=== PATIENT | male | born 1955 | race Caucasian/White ===

== ENCOUNTER 2020-08-10 14:37 | Outpatient (CLI) | payer MEDICARE, SELFPAY ==
--- NOTE | 2020-08-10 14:51 | ECG_ITS ---
Measurements Intervals [place] Rate: 70 P: 47 [place]: 195 QRS: 24 QRSD: 105 T: 35 QT: 397 QTc: 430 Interpretive Statements SINUS RHYTHM VENTRICULAR PREMATURE COMPLEX INCOMPLETE RIGHT BUNDLE BRANCH BLOCK BORDERLINE ECG Electronically Signed On 08-10-2020 15:45:46 CDT by Ej Tao D.O.
== END 2020-08-10 14:38 | disposition home or self-care (01) ==
PROVIDERS: PCP Family Medicine; Visit Provider Family Medicine
DX: E78.2 Mixed hyperlipidemia (principal); I45.10 Unspecified right bundle-branch block
CPT/HCPCS: 93005

== ENCOUNTER 2020-09-25 02:14 | Outpatient (CLI) | payer MEDICARE, SELFPAY ==
[2020-09-25 18:35] LABS: SARS-CoV-2 RNA PCR Negative
== END 2020-09-25 02:15 | disposition home or self-care (01) ==
LOC: ANHCOVIDDT 02:14
PROVIDERS: PCP Family Medicine; Visit Provider Internal Medicine Gastroenterology
DX: Z01.812 Encounter for preprocedural laboratory examination (principal); Z20.828 Contact with and (suspected) exposure to other viral communicable diseases
CPT/HCPCS: 87635; C9803; U0003

== ENCOUNTER 2020-09-28 00:45 | Day surgery (SDC) | payer MEDICARE, SELFPAY ==
[2020-09-22 14:59] VITALS: BMI 27.9
--- NOTE | 2020-09-27 12:20 | WPDANESEPPF ---
Anes - Initial Pre Proc Eval Procedure: Operation Date: 09/28/20 07:30 Proposed Procedures p Screening Colonoscopy - Lawrence Lawrence DO Date/Time: 09/27/20 12:20 Surgeon: Lawrence Lawrence DO Pre Op Diagnosis: Hx Of Colon Polyps Patient Data Age: 65 Gender: M Height: 1.8 m Weight: 91 kg Allergies Allergy/AdvReac Type Severity Reaction Status Date / Time No Known Allergies Allergy Verified 09/28/20 06:17 Home Medications Medication Instructions Recorded Confirmed Type lisinopril 10 mg tablet 10 mg PO DAILY #90 tablet 07/12/20 09/28/20 Rx pioglitazone 45 mg tablet 45 mg PO DAILY #90 tablet 07/12/20 09/28/20 Rx fenofibrate nanocrystallized 145 mg PO DAILY 09/22/20 09/28/20 History metformin 1,000 mg PO BID 09/22/20 09/28/20 History simvastatin 20 mg PO DAILY 09/22/20 09/28/20 History Patient hx anesthesia problems: none Family hx anesthesia problems: none PMFSH Past Medical History Medical History (Updated 09/27/20 @ 12:20 by Bruno Lau DO) Controlled type 2 diabetes mellitus with hyperglycemia, without long-term current use of insulin Hypercalcemia Hypertension Kidney stone Mixed hyperlipidemia Nocturia Other psoriasis Plant allergic contact dermatitis Plantar wart of right foot Family History Family History (Updated 01/18/19 @ 08:31 by DOCTOR UNKNOWN) Father Patient's father is , Onset Age: 94 Mother Family history of chronic obstructive pulmonary disease, Onset Age: 70 Sibling Family history of dementia, Onset Age: 71 Social History Social History Smoking packs per day: 2 Smoking cigarettes per day: 40.0 Years smoked: 30 Smoking pack-years: 60.00 Smoking status: Never smoker Tobacco type: cigarettes Alcohol intake: current Drinks per week: 12 Alcohol use details: BEERS Substance use: never Substance use type: former substance user Living arrangements: with family Spiritual care concerns: No Anes - Eval Final PreProcedure Day of Procedure 09/27/20 12:20 Patient weight: overweight Heart: regular rate and rhythm Lungs: clear to auscultation and normal air movement Airway: Mallampati scale class III Neurological: alert and oriented Last oral intake: >/= 8 hours ASA classification: III Emergent: no Anesthetic plan: proceed Anesthesia type and monitoring: general GIVS and standard monitoring Informed Consent: The patient's anesthetic plan and its attendant risks and benefits were discussed with the patient/family/POA. Questions were solicited and answers provided to the satisfaction of the patient/family/POA.
[2020-09-28 06:17] VITALS: BP 132/71; PULSE 83; RESP 14; TEMP 36.4; O2SAT 96; BMI 29.0
[2020-09-28] MEDS: LACTATED RINGERS 1,000 ML 150 ML IV CONT (06:30)
[2020-09-28 06:35] LABS: Glucose Point of Care 215 (65-105)
--- NOTE | 2020-09-28 07:23 | P.HP_ITS ---
H&P: [facility] History of Present Illness Date/Time: 09/28/20 07:23 Chief Complaint: See below Narrative: Reason for visit this colonoscopy. This very pleasant gentleman seen in consultation the request of primary snow garcia. Impression: Screening and surveillance colonoscopy. The patient's history adenomatous colon polyps. HLD. HTN. DM. Renal stones. Psoriasis Recommendation: Colonoscopy. History: This very pleasant gentleman is here for screening and surveillance colonoscopy. He has a history adenomatous colon polyps. His GI review systems is negative. Physical examination: General: very pleasant patient in no acute distress. HEENT: Head was normocephalic sclerae is clear mouth without masses neck was supple. Heart: Rate rhythm regular without S3 or S4. Lungs: CTA. Abdomen: Soft with no guarding or rigidity. Bowel sounds were active. Neurologic: Cranial nerves 2 through 12 intact. No focal defects. No clonus. Musculoskeletal system: Revealed no joint tenderness or swelling no muscle atrophy. Extremities: Reveal no significant edema. Skin: Warm and dry with normal turgor. Mental status: intact. Patient is alert and oriented. Review of Systems Review of Systems: All systems reviewed & are unremarkable except as noted in HPI and below PMFSH Past Medical History Medical History (Updated 09/27/20 @ 12:20 by Bruno Lau, ) Controlled type 2 diabetes mellitus with hyperglycemia, without long-term current use of insulin Hypercalcemia Hypertension Kidney stone Mixed hyperlipidemia Nocturia Other psoriasis Plant allergic contact dermatitis Plantar wart of right foot Family History Family History (Updated 01/18/19 @ 08:31 by DOCTOR UNKNOWN) Father Patient's father is , Onset Age: 94 Mother Family history of chronic obstructive pulmonary disease, Onset Age: 70 Sibling Family history of dementia, Onset Age: 71 Social History Social History Smoking packs per day: 2 Smoking cigarettes per day: 40.0 Years smoked: 30 Smoking pack-years: 60.00 Smoking status: Never smoker Tobacco type: cigarettes Alcohol intake: current Drinks per week: 12 Alcohol use details: BEERS Substance use: never Substance use type: former substance user Living arrangements: with family Spiritual care concerns: No Meds Home Medications and Allergies Home Medications Medication Instructions Recorded Confirmed Type lisinopril 10 mg tablet 10 mg PO DAILY #90 tablet 07/12/20 09/28/20 Rx pioglitazone 45 mg tablet 45 mg PO DAILY #90 tablet 07/12/20 09/28/20 Rx fenofibrate nanocrystallized 145 mg PO DAILY 09/22/20 09/28/20 History metformin 1,000 mg PO BID 09/22/20 09/28/20 History simvastatin 20 mg PO DAILY 09/22/20 09/28/20 History Allergies Allergy/AdvReac Type Severity Reaction Status Date / Time No Known Allergies Allergy Verified 09/28/20 06:17 Vital Signs Vital Signs - 24 hr 09/28/20 06:17 Temperature 36.4 C L Pulse Rate 83 Respiratory Rate 14 Blood Pressure 132/71 Pulse Oximetry 96
[2020-09-28 07:49] VITALS: BP 103/63; PULSE 75; RESP 27; O2SAT 97
[2020-09-28 07:59] VITALS: BP 114/71; PULSE 78; RESP 28; O2SAT 94
[2020-09-28 08:09] VITALS: BP 117/78; PULSE 74; RESP 22; O2SAT 95
== END 2020-09-28 08:13 | disposition home or self-care (01) ==
PROVIDERS: PCP Family Medicine; Visit Provider Internal Medicine Gastroenterology
PROC: 0DJD8ZZ Inspection of Lower Intestinal Tract, Via Natural or Artificial Opening Endoscopic (ICD-10-PCS; CPT 45378; principal; 2020-09-28 07:30)
DX: Z12.11 Encounter for screening for malignant neoplasm of colon (principal); K63.5 Polyp of colon; K57.90 Diverticulosis of intestine, part unspecified, without perforation or abscess without bleeding; K64.8 Other hemorrhoids; E11.65 Type 2 diabetes mellitus with hyperglycemia; E83.52 Hypercalcemia; Z87.442 Personal history of urinary calculi; E78.2 Mixed hyperlipidemia; R35.1 Nocturia; L40.9 Psoriasis, unspecified; Z86.010 Personal history of colon polyps; Z79.84 Long term (current) use of oral hypoglycemic drugs; I10 Essential (primary) hypertension
CPT/HCPCS: 45385; 87635; 88305; C9803; J2704; J7120; U0003

== ENCOUNTER 2023-06-28 11:49 | Emergency (ER) | payer MEDICARE, SELFPAY ==
[2023-06-28 12:04] VITALS: BP 131/69; PULSE 82; RESP 16; TEMP 36.8; O2SAT 100
--- NOTE | 2023-06-28 12:16 | ED.SKABFB ---
HPI - Skin/Abscess/Foreign Bdy General Chief complaint: Skin/Abscess/Foreign Body Stated complaint: Infection on skin on back Time Seen by Provider: 06/28/23 12:15 Source: patient Mode of arrival: ambulatory Limitations: no limitations History of Present Illness HPI narrative: Patient is a pleasant 67-year-old male who presents emergency department today ambulatory with a steady gait for an area of redness and swelling to the left side of his mid back. Patient states he has had a similar abscess like this in the past. He states it has been there for about 4-5 days. He denies any fever, chills, numbness or tingling of lower extremities, significant pain to his back. denies any insect bite. states he had to have an area drained like this before. Related Data Allergies Allergy/AdvReac Type Severity Reaction Status Date / Time No Known Allergies Allergy Verified 06/28/23 11:50 Review of Systems Review of Systems: CONSTITUTIONAL: Denies fever, chills, or sweats. CARDIOVASCULAR: Denies chest pain, palpitations, or edema. RESPIRATORY: Denies cough or dyspnea. GASTROINTESTINAL: Denies abdominal pain, nausea, vomiting, or diarrhea. GENITOURINARY: Denies dysuria or hematuria. SKIN: Denies rash or itching. abscess to left side of back. MUSCULOSKELETAL: Denies back pain, joint pain, or myalgia. NEUROLOGIC: Denies headache, numbness, or weakness. PSYCHIATRIC: Denies anxiety or depression. All systems reviewed & are unremarkable except as noted in HPI and below PMFSH Past Medical History Medical History BMI 30.0-30.9,adult BMI 31.0-31.9,adult BMI 33.0-33.9,adult Body mass index (bmi) 32.0-32.9, adult (02/03/19) Chronic sinusitis Controlled type 2 diabetes mellitus with hyperglycemia, without long-term current use of insulin fasting glucose 143 and hemoglobin A1c 6.7 on 08/22/2021. glucose 176 and hemoglobin A1c 7.2 on 01/30/2022.Fasting glucose 126 with hemoglobin A1c 6.4 With microalbumin ratio of 11 on 09/06/2022. Fasting glucose 108 with hemoglobin A1c 6.5 on 02/22/2023. Encounter for prostate cancer screening Essential hypertension Facial pain Facial pressure Hypercalcemia calcium level normal at 10.0 with PTH 6 on 08/22/2021 Hypertension Hypertrophy of both inferior nasal turbinates Impacted cerumen, right ear Infected sebaceous cyst of skin Ingrown toenail of both feet Kidney stone Mixed hyperlipidemia total cholesterol 143, triglycerides 271, HDL 37 and LDL 73 on 08/22/2021. Cholesterol 156, triglycerides 399, HDL 32, LDL 76 on 01/30/2022. cholesterol 156, triglycerides 235, HDL 37, LDL 86 on 09/06/2022. Total cholesterol 141, triglycerides 169, HDL 38 and LDL 76 on 02/22/2023. Nasal congestion Nasal folliculitis Nasal septal deviation Nocturia PSA normal at 0.13 on 08/22/2021. PSA 0.12 on 09/06/2022. Obesity (BMI 30.0-34.9) Other psoriasis Plant allergic contact dermatitis Plantar wart of right foot Screening for diabetic retinopathy dilated eye exam 05/15/[address] Horne with no diabetic retinopathy or macular degeneration. No diabetic retinopathy on 05/02/2022. No retinopathy on 06/12/2023. Family History Family History Father Patient's father is , Onset Age: 94 Hypertension Mother Family history of chronic obstructive pulmonary disease, Onset Age: 70 Sibling Family history of dementia, Onset Age: 71 Sibling Cancer Social History Social History Smoking packs per day: 2 Smoking cigarettes per day: 40.0 Years smoked: 30 Smoking pack-years: 60.00 Smoking status: Former smoker Tobacco type: cigarettes Alcohol intake: current Alcohol use details: Rarely Substance use: never Substance use type: does not use Lack of Transportation: No Lack of Food: Never True Cur
[2023-06-28] MEDS: MUPIROCIN 2% OINT 22 GM TUBE 1 APPLIC TOPICAL (13:55)
[2023-06-28 14:00] VITALS: BP 138/90; PULSE 86; RESP 19; O2SAT 98
== END 2023-06-28 14:01 | disposition home or self-care (01) ==
PROVIDERS: Emergency Provider Nurse Practitioner; PCP Family Medicine
DX: L02.212 Cutaneous abscess of back [any part, except buttock and flank] (principal); Z87.891 Personal history of nicotine dependence; E11.9 Type 2 diabetes mellitus without complications; I10 Essential (primary) hypertension; Z87.442 Personal history of urinary calculi
CPT/HCPCS: 10061; 87070; 87147; 87181; 87186; 87205; 99283; A9270

== ENCOUNTER → 2023-10-16 16:38 | Outpatient (CLI) | payer MEDICARE, OTHER, SELFPAY ==
--- NOTE | ~2023-10-16 | XR_ITS ---
XR knee LT min 4V DATE: 10/16/2023 17:08 INDICATION: Left knee pain TECHNIQUE: [place], standing AP and PA and lateral views COMPARISON: None FINDINGS: Mild suprapatellar knee joint effusion. Superior pole patellar enthesopathy at quadriceps tendon insertion. There is mild periarticular spurring consistent with osteoarthritis. There is severe narrowing/virtual obliteration of the department joint space with [id number]. Later al compartment joint space is well preserved. No fracture, dislocation, periosteal reaction or bone destruction, radiopaque intra-articular loose b serenity or chondral calcinosis is noted. Femoral and popliteal artery calcifications. IMPRESSION: Small suprapatellar knee joint effusion is suggested Tricompartment osteoarthritis, particularly severe at the medial compartment with [id number] Reviewed, dictated and finalized at location L. 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
--- NOTE | ~2023-10-16 | XR_ITS ---
XR knee RT min 4V DATE: 10/16/2023 17:08 INDICATION: Right knee pain TECHNIQUE: [place] and standing AP and lateral views, lateral view. COMPARISON: None FINDINGS: Suggestion of mild suprapatellar knee joint effusion. There is severe narrowing/virtual obliteration of the medial compartment joint space with bone-on-bon e. The lateral and patellofemoral compartment joint spaces are well preserved. No fracture or dislocation, periosteal reaction or bone destruction, chondrocalcinosis or radiopaque intra-articular loose body is noted. Femoral and popliteal artery calcification. IMPRESSION: Tricompartment osteophytosis, productive is severe at the medial compartment, with bone-o n-bone Reviewed, dictated and finalized at location L. [employer] IMPRESSION: Tricompartment osteophytosis, productive is severe at the medial co mpartment, with [id number]
== END ==
PROVIDERS: PCP Family Medicine; Visit Provider Family Medicine
DX: M17.12 Unilateral primary osteoarthritis, left knee (principal); M25.462 Effusion, left knee; M25.761 Osteophyte, right knee
CPT/HCPCS: 73564

== ENCOUNTER 2024-03-15 05:59 | Inpatient (IN) | payer OTHER, MEDICARE, SELFPAY ==
[2024-03-15] VITALS (22 sets, daily range): BP systolic 127–179; BP diastolic 62–92; PULSE 72–94; RESP 17–30; TEMP 36.4–36.8; O2SAT 88–99; BMI 30.6
--- NOTE | ~2024-03-15 | CT_ITS ---
EXAMINATION:CT diagnostic chest wo con DATE: 03/15/2024 14:18 INDICATION: Shortness of breath. Abnormal chest radiograph. TECHNIQUE: Computed tomography (CT) of the chest was performed without intravenous contrast. Automate d exposure control and iterative reconstruction technique were employed. The dose-length product (DLP ) was 355.18 mGy-cm. COMPARISON: Chest single view 03/15/2024 FINDINGS: There is mild emphysema. There is widespread septal thickening in the lungs with groundglas s opacities and architectural distortion. No bronchiectasis. No pleural effusion. The heart size is n ormal. There are coronary artery calcifications. No pericardial effusion. There is mild mediastinal l ymphadenopathy. There are peripelvic cysts in the kidneys measuring up to 2.5 cm in the left. There a re 2 stones in right kidney measuring up to 3 mm. There is a 4 mm stone in left kidney. There are nayla dging endplate osteophytes at multiple levels in the spine, consistent with diffuse idiopathic skelet al hyperostosis (DISH). . IMPRESSION: 1. Diffuse lung disease, likely a combination of mild emphysema, chronic interstitial lung disease, a nd atypical pneumonia versus pulmonary edema. 2. Mild mediastinal lymphadenopathy, likely reactive. Reviewed, dictated and finalized at location A. IMPRESSION: 1. Diffuse lung disease, likely a combination of mild emphysema, chronic inters titial lung disease, and atypical pneumonia versus pulmonary edema. 2. Mild mediastinal lymphadenopathy, likely reactive.
--- NOTE | ~2024-03-15 | XR_ITS ---
Portable chest x-ray Comparison: None Clinical History: Shortness of breath Findings: There is mild haziness with basilar and peripheral distribution. No pleural effusion. Car diomediastinal silhouette is stable. Bones and soft tissues are unremarkable. Impression: Hazy pulmonary disease as above. Correlate for pulmonary edema, infection, or possibly chronic inters titial disease. Reviewed, dictated and finalized at location . Impression: Hazy pulmonary disease as above. Correlate for pulmonary edema, infection, or p ossibly chronic interstitial disease.
--- NOTE | 2024-03-15 06:01 | ECG_ITS ---
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 Measurements Intervals [place] Rate: 89 P: 9 ID: [id number] QRS: -20 QRSD: 85 T: 8 QT: 336 QTc: 411 Interpretive Statements SINUS RHYTHM NORMAL ELECTROCARDIOGRAM No previous ECG available for comparison Electronically Signed On 03-15-2024 07:36:38 CDT by Jam Sam M.D.
[2024-03-15 06:15] LABS: Basophils Percent Auto 0.4 % (0.2-1.2); Eosinophils Absolute Auto 0.6 K/mm3 (0-0.3); Eosinophils Percent Auto 5.3 % (0-4.4); Hematocrit 43.5 % (42.0-52.0); Hemoglobin 14.3 g/dL (14.0-18.0); Immature Granulocyte Absolute 0.08 K/mm3 (0.00-0.031); Immature Granulocyte Percent A 0.7 % (0-0.5); Lymphocytes Absolute Auto 1.64 K/mm3 (0.9-3.2); Lymphocytes Percent Auto 15.2 % (18.3-44.2); Mean Corpuscular HGB Conc 32.9 g/dl (32-36); Mean Corpuscular Hemoglobin 29.5 pg (26-34); Mean Corpuscular Volume 89.9 fl (80-100); Mean Platelet Volume 9.4 fl (7.4-10.4); Monocytes Percent Auto 9.1 % (2.6-8.5); Neutrophils Absolute Auto 7.5 K/mm3 (1.3-6.7); Neutrophils Percent Auto 69.3 % (45.5-73.1); Platelet Count Result 472 k/mm3 (150-375); Red Blood Count 4.84 M/mm3 (4.6-6.20); Red Cell Distribution Width 13.4 % (11.5-14.5); White Blood Count 10.8 K/mm3 (4.5-10.0)
[2024-03-15 06:27] LABS: Alanine Aminotransferase 15 U/L (6-50); Albumin Level 4.4 g/dL (3.5-5.1); Alkaline Phosphatase 69 U/L (38-126); Anion Gap 10 mmol/L (4-12); Aspartate Amino Transferase 20 U/L (17-59); Bilirubin,Total 0.6 mg/dL (0.2-1.3); Blood Urea Nitrogen 22 mg/dL (9-20); Calcium 9.9 mg/dL (8.4-10.2); Carbon Dioxide 22 mmol/L (22-30); Chloride 108 mmol/L (98-107); Estimated CRCL calculation 91 ml/min; Estimated Glomerular Filt Rate > 60; Glucose 159 mg/dL (65-110); Potassium 4.1 mmol/L (3.4-5.0); Sodium 140 mmol/L (137-145)
--- NOTE | 2024-03-15 07:20 | PC.NURSE ---
Assumed care of pt. Pt resting with tachy resp, oxygen intact at 2L. Denies any CP, reports occasional cough. Breath sounds diminished in bases.
[2024-03-15] MEDS: IPRATROPIUM 0.5 MG/ALBUTEROL SULFATE 2.5 MG AMPUL.NEB 3 ML INHALATION ×3 (07:38→20:39)
--- NOTE | 2024-03-15 07:43 | ED.SOB ---
HPI - SOB/Dyspnea General Chief Complaint: Shortness of Breath/Dyspnea Stated Complaint: SOB Time Seen by Provider: 03/15/24 06:53 History of Present Illness HPI Narrative: Patient is a 68-year-old male who denies history of cardiac disease or lung disease who presents the ER with shortness of breath. Worsening over the weekend. Associated with mild sinus congestion. No fevers or chills or sweats. No productive cough. Has exertional dyspnea. Does not typically wear oxygen. Patient with a low O2 saturation upon arrival. He has no chest pain. No alleviating factors are identified. No known sick contacts. Patient is a former smoker. Related Data Allergies Allergy/AdvReac Type Severity Reaction Status Date / Time No Known Allergies Allergy Verified 12/09/23 13:08 Review of Systems Review of Systems: All systems reviewed & are unremarkable except as noted in HPI and below Constitutional: Constitutional: Reports no additional constitutional complaints ENT: Reports nasal congestion and Denies sore throat Cardiovascular: Cardiovascular: Reports no additional cardiovascular complaints Respiratory: Respiratory: Denies chest congestion, Reports cough, Reports dyspnea and Denies wheezing Gastrointestinal: Gastrointestinal: Reports no additional gastrointestinal complaints Musculoskeletal: Musculoskeletal: Reports no additional musculoskeletal complaints [facility] Past Medical History Medical History (Updated 03/15/24 @ 18:53 by Ambrosio Salter MD) Chronic pain of left knee Tricompartmental osteoarthritis of the knee on 10/16/2023 most severe in the medial component. Chronic pain of right knee X-ray of the knee on 10/16/2023 reveals tricompartmental osteoarthritis severe in the medial component. Chronic sinusitis Controlled type 2 diabetes mellitus with hyperglycemia, without long-term current use of insulin fasting glucose 143 and hemoglobin A1c 6.7 on 08/22/2021. glucose 176 and hemoglobin A1c 7.2 on 01/30/2022.Fasting glucose 126 with hemoglobin A1c 6.4 With microalbumin ratio of 11 on 09/06/2022. Fasting glucose 108 with hemoglobin A1c 6.5 on 02/22/2023. Glucose 126 with hemoglobin A1c 6.0 and urine microalbumin ratio of 16 on 09/06/2023. Encounter for prostate cancer screening PSA 0.14 on 09/06/2023. Essential hypertension Kidney stone Mixed hyperlipidemia total cholesterol 143, triglycerides 271, HDL 37 and LDL 73 on 08/22/2021. Cholesterol 156, triglycerides 399, HDL 32, LDL 76 on 01/30/2022. cholesterol 156, triglycerides 235, HDL 37, LDL 86 on 09/06/2022. Total cholesterol 141, triglycerides 169, HDL 38 and LDL 76 on 02/22/2023. Total cholesterol 137, triglycerides 159, HDL 44, LDL 69 with ratio 3.1 on 09/06/2023. Nocturia PSA normal at 0.13 on 08/22/2021. PSA 0.12 on 09/06/2022. Other psoriasis Midline lower back /buttock Screening for diabetic retinopathy dilated eye exam 05/15/[address] Horne with no diabetic retinopathy or macular degeneration. No diabetic retinopathy on 05/02/2022. No retinopathy on 06/12/2023. Surgical History Surgical History (Updated 03/15/24 @ 13:34 by Claudia Ortez PA-C) History of colonoscopy with polypectomy Family History Family History Father Patient's father is , Onset Age: 94 Hypertension Mother Family history of chronic obstructive pulmonary disease, Onset Age: 70 Sibling Family history of dementia, Onset Age: 71 Sibling Cancer Social History Social History (Updated 03/15/24 @ 13:35 by Claudia Ortez PA-C) Social History: Surrogate medical decision maker: Terrie Callaway, spouse. Code status: Full code. Smoking packs per day: 2 Smoking cigarettes per day: 40.0 Years smoked: 30 Smoking pack-years: 60.00 Smoking status: Former smoker Alcohol intake: never Alcohol use details: Rare alcohol use in moderation. Substance u
--- NOTE | 2024-03-15 08:00 | PC.NURSE ---
Pt trialed on room air. After Resp Treatment pt 89% with shortness of breath. Dr. Salter aware & oxygen restarted at 2l raising Sa02 to 94%
--- NOTE | 2024-03-15 08:15 | PC.NURSE ---
Chemistry notified of BNP order.
[2024-03-15 08:27] LABS: NT Pro B Type Natriuretic Pept 149 pg/mL (19.9-100)
[2024-03-15] MEDS: AZITHROMYCIN 500 MG/NS 250 ML 500 MG/250 ML BAG 250 MG IVPB (09:35)
[2024-03-15 09:49] LABS: Influenza A QL RT-PCR Negative (Negative); Influenza B QL RT-PCR Negative (Negative); RSV RNA, RT-PCR Negative (Negative); SARS-CoV-2 RNA PCR Negative (Negative)
--- NOTE | 2024-03-15 12:35 | ADMGEN ---
This patient, Rick Callaway, was admitted to Medical Room 256-. Patient/family oriented to hospital policies and general routines including ID bracelet, bed and alarms, visiting hours, pain management, procedures, bathroom and other care routines, personal items, smoking policy, room service/diet, and visiting hours. Information on how to activate the Rapid Response Team has been discussed. Patient/Family are encouraged to report perceived risks to care and to ask questions if they do not understand what they are told or what they should do.
--- NOTE | 2024-03-15 13:28 | PM.IMHP ---
H&P: HPI History of Present Illness Date/Time: 03/15/24 14:00 Chief Complaint: Shortness of breath. Narrative: This is a pleasant 68-year-old male with hypertension, hyperlipidemia, type 2 diabetes mellitus, and suspected COPD who presented to the emergency department for evaluation of shortness of breath. The patient provides the following history. He has not felt well for about a week with sinus congestion, dry cough, decreased appetite, itchy and watery eyes, and increasing dyspnea on lesser and lesser exertion. He feels as though he cannot take in a deep breath. Home COVID test was negative. He denies fever, chills, sweats, chest pain, pleuritic pain, palpitations, orthopnea, paroxysmal nocturnal dyspnea, edema, nausea, vomiting, and diarrhea. He also denies dysphagia and concerns for aspiration. In the ED: SpO2 was as low as 88% with exertion in the ED. The remainder of his vital signs are normal. Labs were significant for a WBC count of 10.8, BUN 22, glucose 159, proBNP 149. He tested negative for influenza, RSV, and COVID. Chest x-ray showed mild haziness with basilar and peripheral distribution with a differential diagnosis to include pulmonary edema, infection, or possibly chronic interstitial disease. EKG showed normal sinus rhythm. He was given a nebulizer treatment and a dose of azithromycin and ceftriaxone he is being admitted in this setting for further treatment and evaluation. Review of Systems Review of Systems: 12 systems were reviewed and are negative except for as per HPI. [facility] Past Medical History Medical History Chronic pain of left knee Tricompartmental osteoarthritis of the knee on 10/16/2023 most severe in the medial component. Chronic pain of right knee X-ray of the knee on 10/16/2023 reveals tricompartmental osteoarthritis severe in the medial component. Chronic sinusitis Controlled type 2 diabetes mellitus with hyperglycemia, without long-term current use of insulin fasting glucose 143 and hemoglobin A1c 6.7 on 08/22/2021. glucose 176 and hemoglobin A1c 7.2 on 01/30/2022.Fasting glucose 126 with hemoglobin A1c 6.4 With microalbumin ratio of 11 on 09/06/2022. Fasting glucose 108 with hemoglobin A1c 6.5 on 02/22/2023. Glucose 126 with hemoglobin A1c 6.0 and urine microalbumin ratio of 16 on 09/06/2023. Encounter for prostate cancer screening PSA 0.14 on 09/06/2023. Essential hypertension Kidney stone Mixed hyperlipidemia total cholesterol 143, triglycerides 271, HDL 37 and LDL 73 on 08/22/2021. Cholesterol 156, triglycerides 399, HDL 32, LDL 76 on 01/30/2022. cholesterol 156, triglycerides 235, HDL 37, LDL 86 on 09/06/2022. Total cholesterol 141, triglycerides 169, HDL 38 and LDL 76 on 02/22/2023. Total cholesterol 137, triglycerides 159, HDL 44, LDL 69 with ratio 3.1 on 09/06/2023. Nocturia PSA normal at 0.13 on 08/22/2021. PSA 0.12 on 09/06/2022. Other psoriasis Midline lower back /buttock Screening for diabetic retinopathy dilated eye exam 05/15/[address] Horne with no diabetic retinopathy or macular degeneration. No diabetic retinopathy on 05/02/2022. No retinopathy on 06/12/2023. Surgical History Surgical History History of colonoscopy with polypectomy Family History Family History Father Patient's father is , Onset Age: 94 Hypertension Mother Family history of chronic obstructive pulmonary disease, Onset Age: 70 Sibling Family history of dementia, Onset Age: 71 Sibling Cancer Social History Social History Social History: Surrogate medical decision maker: Terrie Callaway, spouse. Code status: Full code. Smoking packs per day: 2 Smoking cigarettes per day: 40.0 Years smoked: 30 Smoking pack-year
[2024-03-15] MEDS: guaiFENesin 12 HR 600 MG TABCR 1200 MG PO ×2 (14:58→20:33)
[2024-03-15 16:56] LABS: Glucose Point of Care 110 mg/dl (65-105)
[2024-03-15] MEDS: metFORMIN HCL XR 500 MG TAB.SR.24H 1000 MG PO (17:41)
[2024-03-15 20:27] LABS: Glucose Point of Care 107 mg/dl (65-105)
[2024-03-15] MEDS: IPRATROPIUM 0.5 MG/ALBUTEROL SULFATE 2.5 MG AMPUL.NEB 3 ML (20:59)
[2024-03-16] VITALS (15 sets, daily range): BP systolic 122–138; BP diastolic 57–61; PULSE 77–90; RESP 18–20; TEMP 36.5–36.8; O2SAT 88–93
[2024-03-16] MEDS: IPRATROPIUM 0.5 MG/ALBUTEROL SULFATE 2.5 MG AMPUL.NEB 3 ML INHALATION ×4 (03:15→20:50)
[2024-03-16 05:49] LABS: Hematocrit 42.4 % (42.0-52.0); Hemoglobin 13.4 g/dL (14.0-18.0); Mean Corpuscular HGB Conc 31.6 g/dl (32-36); Mean Corpuscular Hemoglobin 29.5 pg (26-34); Mean Corpuscular Volume 93.2 fl (80-100); Mean Platelet Volume 9.8 fl (7.4-10.4); Platelet Count Result 412 k/mm3 (150-375); Red Blood Count 4.55 M/mm3 (4.6-6.20); Red Cell Distribution Width 13.3 % (11.5-14.5); White Blood Count 8.3 K/mm3 (4.5-10.0)
[2024-03-16 06:01] LABS: Anion Gap 9 mmol/L (4-12); Blood Urea Nitrogen 21 mg/dL (9-20); CRP 3.2 mg/dL (<1.0); Calcium 9.2 mg/dL (8.4-10.2); Carbon Dioxide 21 mmol/L (22-30); Chloride 106 mmol/L (98-107); Estimated CRCL calculation 102 ml/min; Estimated Glomerular Filt Rate > 60; Glucose 134 mg/dL (65-110); Magnesium 1.9 mg/dL (1.6-2.3); Potassium 3.7 mmol/L (3.4-5.0); Sodium 136 mmol/L (137-145)
[2024-03-16 06:26] LABS: Procalcitonin 0.1 ng/mL
--- NOTE | 2024-03-16 07:53 | PM.IMPN ---
Progress Note: A&P Assessment and Plan (1) Acute respiratory failure with hypoxia: Code(s): J96.01 - Acute respiratory failure with hypoxia Status: Acute Assessment and Plan: Patient presented to ED with shortness of breath and SpO2 88% requiring oxygen supplementation of 3L NC on admission. Back to baseline room air. - Monitor Oxygen saturation, Oxygen via NC; wean oxygen as tolerated, keep SpO2 greater than 88% (2) Abnormal chest x-ray: Code(s): R93.89 - Abnormal findings on diagnostic imaging of other specified body structures Status: Acute Assessment and Plan: Patient presents to hospital with SOB for the past week. He has a 60 pack year smoking history, quit in 1999. Suspect COPD. - CXR: Hazy pulmonary disease as above. Correlate for pulmonary edema, infection, or possibly chronic interstitial disease. - Chest CT: Diffuse lung disease, likely a combination of mild emphysema, chronic interstitial lung disease, and atypical pneumonia versus pulmonary edema. Mild mediastinal lymphadenopathy, likely reactive. - Antibiotics: Ceftriaxone 1 gram IV q24H and Azithromycin 500mg IV q24H - Viral PCR: negative for Flu/COVID/RSV - Back on baseline RA. Monitor Oxygen saturation, Oxygen via NC; wean oxygen as tolerated, keep SpO2 greater than 88% - supportive treatment tyl prn mucinex BID nebs q6H - Monitor vital signs, I&Os, neuro status and patient is a fall risk - Follow WBC, serum electrolytes, temperature curves and cultures - Sputum culture collected on 03/16: pending - Legionella, pneumococcal, mycoplasma pending - MRSA pending - Autoimmune serologies - Pulmonology following, agree with continued CAP treatment (3) Type 2 diabetes mellitus: Code(s): E11.9 - Type 2 diabetes mellitus without complications Status: Acute Assessment and Plan: - hypoglycemia protocol - POC blood glucose ACHS - home medication - glimepiride, pioglitazone, metformin - correct regimen ordered - low dose TIDWM and continued home medications - A1C 09/06/23: 6.0 (4) Essential hypertension: Code(s): I10 - Essential (primary) hypertension Status: Acute Assessment and Plan: Chronic, stable on home medications. - Lisinopril 10 mg daily - Monitor (5) Mixed hyperlipidemia: Code(s): E78.2 - Mixed hyperlipidemia Status: Acute Assessment and Plan: Chronic, continue simvastatin 20 mg daily. Time Spent With Patient Time with patient: 25 - 35 minutes Subjective Date/time seen: 03/16/24 07:53 Interval history: 68-year-old male smoker (46 pack year) with hypertension, hyperlipidemia, type 2 diabetes mellitus, and suspected COPD who presented to the emergency department for evaluation of shortness of breath. Patient is pleasant lying in bed. He states he is feeling much better since receiving the breathing treatments. He continues to have a productive cough with yellow/brown phlegm. He denies chest pain, palpitations, nausea/vomiting, and changes in bowel/bladder. Patient evaluated by Dr. Dimas. Plan to continue CAP treatment, duonebs, Mucinex and check overnight pulse oximetry. He had an ABG performed however this specimen was mixed with venous blood. Review of Systems Review of Systems: All systems reviewed & are unremarkable except as noted in HPI and below Exam Narrative: AF HR 88 RR 20 SpO2 93 RA BP 136/57 General: male in no acute respiratory distress who is nontoxic appearing, lying semi recumbent in bed. HEENT: Normocephalic. Atraumatic. Pupils equal round reactive to light. Extraocular movement intact. Sclera clear and anicteric. No facial asymmetry. Chest: Lungs are clear to auscultation bilaterally. No wheezes or crackles. CV: Heart was regular rate and rhythm. S1/S2. No murmurs, gallops, or rubs. Abd: Abdomen was soft. Nontender. Nondistended. Positive bowel sounds. No organomegaly or masses. Ext: No clubbing, cyanosis, or edema. 2+ DP
[2024-03-16 08:12] LABS: Glucose Point of Care 147 mg/dl (65-105)
[2024-03-16] MEDS: FENOFIBRATE NANOCRYSTALLIZED 145 MG TABLET PO (09:33)
[2024-03-16] MEDS: GLIMEPIRIDE 2 MG TABLET 4 MG PO (09:33)
[2024-03-16] MEDS: lisinopriL 10 MG TABLET PO (09:34)
[2024-03-16] MEDS: PIOGLITAZONE HCL 45 MG TABLET PO (09:34)
[2024-03-16] MEDS: metFORMIN HCL XR 500 MG TAB.SR.24H 1000 MG PO ×2 (09:34→18:02)
[2024-03-16] MEDS: SIMVASTATIN 20 MG TABLET PO (09:34)
[2024-03-16] MEDS: guaiFENesin 12 HR 600 MG TABCR 1200 MG PO ×2 (09:34→21:04)
[2024-03-16] MEDS: AZITHROMYCIN 500 MG/NS 250 ML 500 MG/250 ML BAG 250 MG IVPB (11:22)
[2024-03-16 11:35] LABS: Creatine Kinase 47 U/L (55-170)
[2024-03-16 11:41] LABS: Glucose Point of Care 231 mg/dl (65-105)
[2024-03-16] MEDS: INSULIN ASPART (*BKC) 100 UNITS/ML SUB-Q (12:15)
--- NOTE | 2024-03-16 12:38 | PM.CNPUL ---
Assessment and Plan Assessment and plan (1) COPD (chronic obstructive pulmonary disease): Code(s): J44.9 - Chronic obstructive pulmonary disease, unspecified Status: Acute Assessment and Plan: Patient with a 46 pack year tobacco use, mild apical predominant centrilobular emphysema on his chest CT scan. I have no PFTs. The patient may have COPD. 03/16/2024: Today the patient states that he feels better. Overall he states that his breathing is 80% back to his normal, his phlegm is 80% improved and he still has yellow phlegm. His cough is 80% improved. He says the DuoNebs to help him take deeper breaths. When I enter the room the patient was on 3 L nasal cannula saturations 97%. I decreased the patient to room air and after 23 minutes his saturations were 91%. Plan: Currently the patient has no wheezing. At this time I will continue DuoNebs q.6 hours. He does have some phlegm production and I will continue guaifenesin 1200 mg p.o. b.i.d.. I will check an alpha 1 anti trypsin genotype. Goal saturation 90-94%. Currently patient is on room air. I will check a room air arterial blood gas to exclude chronic hypercarbic respiratory Failure. I will check an overnight oximetry on room air to assess his oxygen levels when he sleeps. Of note the says that he has witnessed sleep apnea episodes. Will follow with you. (2) Abnormal CT scan of lung: Code(s): R91.8 - Other nonspecific abnormal finding of lung field Status: Acute Assessment and Plan: Patient has no history of respiratory symptoms prior to 10 days ago. I have no old imaging. Patient has 46 pack year tobacco use quit 23 years ago. 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 The patient also states that in the he was exposed to asbestos. CT scan of the chest shows mild apical predominant centrilobular emphysema. Homogeneous septal thickening throughout with no peripheral or basilar predominance and with no honeycombing or bronchiectasis. There is ground glass infiltrates with some mosaic attenuation. In my opinion this is a CT pattern indeterminate for UIP. Etiology includes pneumonia (bacterial or viral), occupational lung disease from inhaled construction and brick dust, NSIP from autoimmune disease, hypersensitivity pneumonitis, doubt fluid overload, Plan: continue treat with ceftriaxone and azithromycin, day 2. I will send an extended respiratory pathogen panel. I will send serologies for autoimmune disease as well as a hypersensitivity pneumonitis panel. Echocardiogram has been ordered. (3) Pneumonia: Code(s): J18.9 - Pneumonia, unspecified organism Status: Acute Assessment and Plan: Patient with a 10 day history of an acute illness including worsening cough, dyspnea on exertion, increased phlegm production. COVID, RSV and influenza RT PCR studies negative. Sputum cultures pending Plan: Agree with continuation a treatment for community-acquired pneumonia with ceftriaxone and azithromycin. Patient is on day 2 and says he is clinically improved.. I will so he send urine Legionella, urine pneumococcal and mycoplasma IgM. sputum MRSA assay. History of Present Illness History of Present Illness Consult date: 03/16/24 Chief complaint: Pneumonia/Hypoxia Narrative: 03/16/2024: This is a new pulmonary consult for COPD, pneumonia and interstitial lung disease. 68-year-old with a history of hypertension, diabetes and sore joints presented to the hospital on 03/15/2024 with worsening shortness of breath. Patient has no history of childhood infections, childhood asthma, adult pneumonias requiring hospitalization or lung disease to his knowledge. Two weeks ago the patient had no respiratory limitations in activities of his daily living. 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
[2024-03-16 13:54] LABS: Rheumatoid Factor < 12.0 IU/ML (<12)
[2024-03-16 14:13] LABS: Alveolar/Arterial O2 Gradient 74.3 mmHg; Base Excess ABG 2.1 mEq/l (+/-2.0); Fractional Inspired Oxygen 21 %; HCO3 ABG 25.9 mEq/l (22.0-26.0); Oxygen Content ABG 12.3 %vol (16.0-22.0); PCO2 ABG 37.7 mmHg (35.0-45.0); PO2 FiO2 Ratio Arterial Blood 1.44 %; Total Hemoglobin 14.3 g/dL (12.0-18.0); pH ABG 7.455 (7.350-7.450)
[2024-03-16 14:58] LABS: Oxygen Saturation ABG 61.4 % (95.0-100.0); Oxyhemoglobin 61.6 % THb (90.0-100.0); Site Drawn LEFT RADIAL
[2024-03-16 14:59] LABS: Device ROOM AIR
[2024-03-16 15:38] LABS: PO2 ABG 30.3 mmHg (80.0-100.0)
[2024-03-16 16:27] LABS: MRSA (PCR) DETECTED (NOT DETECTE)
[2024-03-16 17:15] LABS: Glucose Point of Care 95 mg/dl (65-105)
[2024-03-16 20:22] LABS: Glucose Point of Care 114 mg/dl (65-105)
[2024-03-16] MEDS: MUPIROCIN 2% OINT 22 GM TUBE 1 APPLIC EACH NARE (21:04)
--- NOTE | 2024-03-16 22:16 | ECHO_ITS ---
Patient Info Name: Rick Callaway Age: 68 years : 1955 Gender: Male Ht: 71 in Wt: 219 lbs BSA: 2.26 m2 HR: 87 bpm BP: 138 / 59 mmHg Heart Rhythm: Sinus Rhythm Technical Quality: Good Exam Date: 03/16/2024 9:46 AM Exam Location: Echo Lab Patient Status: Inpatient Admit Date: 03/16/2024 Staff Ordering Physician: Claudia Ortez PA-C Journeyman Lineman: Margie Braga RDCS Attending Provider: Juany Lawson PA-C Referring Physician: Neelima KING; Exam Type: CA echo doppler color flow Study Info Indications - Htn - Pulmonary edema R06.02 - Shortness of breath Complete two-dimensional, color flow and Doppler transthoracic echocardiogram is performed. Summary 1. Left ventricular chamber dimension is normal. 2. Left ventricular systolic function is hyperdynamic, estimated at >70%. 3. The left ventricular diastolic function is grade I diastolic dysfunction. 4. Right ventricular chamber dimension is mildly enlarged. 5. Right ventricular systolic function is normal. 6. No significant valvular disease. Left Ventricle Left ventricular chamber dimension is normal. Left ventricular systolic function is hyperdynamic, estimated at >70%. There is no increased left ventricular wall thickness. The left ventricular diastolic function is grade I diastolic dysfunction. Right Ventricle Right ventricular chamber dimension is mildly enlarged. Right ventricular systolic function is normal. Left Atria Left atrial chamber dimension is normal. Right Atria Right atrial chamber dimension is normal. Atrial Septum Intact interatrial septum visualized by color flow imaging. Aortic Valve The aortic valve is probable trileaflet. There is no aortic valve stenosis. There is no aortic valve regurgitation. There is mild aortic valve calcification. Pulmonic Valve The pulmonic valve is not well visualized. Mitral Valve There is trace mitral valve regurgitation. Tricuspid Valve There is trace tricuspid valve regurgitation. Pericardium/Pleural There is no pericardial effusion. Inferior Vena Cava Normal inferior vena cava with >50% collapse upon inspiration consistent with normal right atrial pressure, 3 mmHg. Aorta The aortic root size at the sinus of Valsalva is normal. Left Ventricular Outflow Tract Name Value Normal LVOT 2D LVOT Diameter 2.1 cm LVOT Doppler LVOT Peak Gradient 6 mmHg LVOT Mean Gradient 3 mmHg LVOT VTI 21 cm LVOT VTI/AV VTI Ratio 0.9 LVOT Stroke Volume 70 ml LVOT CO 6.5 l/min LVOT CI 2.9 l/min/m2 Pulmonic Valve Name Value Normal RVOT Doppler RVOT Peak Gradient 3 mmHg PV Doppler PV Peak Gradient
[2024-03-17] VITALS (15 sets, daily range): BP systolic 124; BP diastolic 74; PULSE 86–110; RESP 18–24; TEMP 36.3; O2SAT 82–94
--- NOTE | 2024-03-17 05:29 | PCRCNOTE ---
Apnea link applied approximately 2230. 0005 pt's O2 was 82% Pt placed on 1L. 0030 pt's O2 was 85% O2 increased to 2L. Apnea link removed at 0520.
[2024-03-17] MEDS: IPRATROPIUM 0.5 MG/ALBUTEROL SULFATE 2.5 MG AMPUL.NEB 3 ML INHALATION ×2 (07:01→13:00)
[2024-03-17 07:55] LABS: Glucose Point of Care 141 mg/dl (65-105)
--- NOTE | 2024-03-17 08:11 | PM.IMPN ---
Progress Note: A&P Assessment and Plan (1) Acute respiratory failure with hypoxia: Code(s): J96.01 - Acute respiratory failure with hypoxia Status: Acute Assessment and Plan: Admitted from ED with shortness of breath and SpO2 88% requiring oxygen supplementation of 3L NC on admission. Back to baseline room air. - Monitor Oxygen saturation, Oxygen via NC; wean oxygen as tolerated, keep SpO2 greater than 88% (2) Abnormal chest x-ray: Code(s): R93.89 - Abnormal findings on diagnostic imaging of other specified body structures Status: Acute Assessment and Plan: Patient presents to hospital with SOB for the past week. He has a 60 pack year smoking history, quit in 1999. Suspect COPD. - CXR: Hazy pulmonary disease as above. Correlate for pulmonary edema, infection, or possibly chronic interstitial disease. - Chest CT: Diffuse lung disease, likely a combination of mild emphysema, chronic interstitial lung disease, and atypical pneumonia versus pulmonary edema. Mild mediastinal lymphadenopathy, likely reactive. - Antibiotics: Ceftriaxone 1 gram IV q24H and Azithromycin 500mg IV q24H - Viral PCR: negative for Flu/COVID/RSV - Back on baseline RA. Monitor Oxygen saturation, Oxygen via NC; wean oxygen as tolerated, keep SpO2 greater than 88% - supportive treatment tyl prn mucinex BID nebs q6H - Monitor vital signs, I&Os, neuro status and patient is a fall risk - Follow WBC, serum electrolytes, temperature curves and cultures - Sputum culture collected on 03/16: pending - Legionella, pneumococcal, mycoplasma pending - MRSA pending - Autoimmune serologies - Pulmonology following, agree with continued CAP treatment (3) Type 2 diabetes mellitus: Code(s): E11.9 - Type 2 diabetes mellitus without complications Status: Acute Assessment and Plan: - hypoglycemia protocol - POC blood glucose ACHS - home medication - glimepiride, pioglitazone, metformin - correct regimen ordered - low dose TIDWM and continued home medications - A1C 09/06/23: 6.0 (4) Essential hypertension: Code(s): I10 - Essential (primary) hypertension Status: Acute Assessment and Plan: Chronic, stable on home medications. - Lisinopril 10 mg daily - Monitor (5) Mixed hyperlipidemia: Code(s): E78.2 - Mixed hyperlipidemia Status: Acute Assessment and Plan: Chronic, continue simvastatin 20 mg daily. Time Spent With Patient Time with patient: 25 - 35 minutes Subjective Date/time seen: 03/17/24 08:11 Interval history: 68-year-old male smoker (46 pack year) with hypertension, hyperlipidemia, type 2 diabetes mellitus, and suspected COPD who presented to the emergency department for evaluation of shortness of breath. 03/17 pt is seen and examined at [facility]....He is feeling better with breathing treatments, continues to have a productive cough with yellow/brown phlegm. Denies chest pain, palpitations, nausea/vomiting, and changes in bowel/bladder. Patient evaluated by pulm. Continue CAP treatment, duonebs, Mucinex and check overnight pulse oximetry. He had an ABG performed however this specimen was mixed with venous blood 03/16. Review of Systems Review of Systems: 12 systems were reviewed and are negative except for as per HPI. All systems reviewed & are unremarkable except as noted in HPI and below Exam Narrative: AF HR 88 RR 20 SpO2 93 RA BP 136/57 General: male in no acute respiratory distress who is nontoxic appearing, lying semi recumbent in bed. HEENT: Normocephalic. Atraumatic. Pupils equal round reactive to light. Extraocular movement intact. Sclera clear and anicteric. No facial asymmetry. Chest: Lungs are clear to auscultation bilaterally. No wheezes or crackles. CV: Heart was regular rate and rhythm. S1/S2. No murmurs, gallops, or rubs. Abd: Abdomen was soft. Nontender. Nondistended. Positive bowel sounds. No organomegaly or masses. Ext: No clubb
[2024-03-17] MEDS: lisinopriL 10 MG TABLET PO (08:51)
[2024-03-17] MEDS: guaiFENesin 12 HR 600 MG TABCR 1200 MG PO (08:51)
[2024-03-17] MEDS: PIOGLITAZONE HCL 45 MG TABLET PO (08:51)
[2024-03-17] MEDS: GLIMEPIRIDE 2 MG TABLET 4 MG PO (08:52)
[2024-03-17] MEDS: SIMVASTATIN 20 MG TABLET PO (08:52)
[2024-03-17] MEDS: metFORMIN HCL XR 500 MG TAB.SR.24H 1000 MG PO (08:52)
[2024-03-17] MEDS: FENOFIBRATE NANOCRYSTALLIZED 145 MG TABLET PO (08:52)
[2024-03-17 08:56] LABS: Basophils Absolute Auto 0.1 K/mm3 (0.0-0.1); Basophils Percent Auto 0.7 % (0.2-1.2); Eosinophils Absolute Auto 0.5 K/mm3 (0-0.3); Eosinophils Percent Auto 5.7 % (0-4.4); Hemoglobin 14.2 g/dL (14.0-18.0); Immature Granulocyte Absolute 0.08 K/mm3 (0.00-0.031); Immature Granulocyte Percent A 0.9 % (0-0.5); Lymphocytes Absolute Auto 1.75 K/mm3 (0.9-3.2); Lymphocytes Percent Auto 19.2 % (18.3-44.2); Mean Corpuscular HGB Conc 32.3 g/dl (32-36); Mean Corpuscular Hemoglobin 29.3 pg (26-34); Mean Corpuscular Volume 90.9 fl (80-100); Mean Platelet Volume 9.1 fl (7.4-10.4); Monocytes Absolute Auto 0.8 K/mm3 (0.1-0.6); Monocytes Percent Auto 8.4 % (2.6-8.5); Neutrophils Absolute Auto 5.9 K/mm3 (1.3-6.7); Neutrophils Percent Auto 65.1 % (45.5-73.1); Platelet Count Result 495 k/mm3 (150-375); Red Blood Count 4.84 M/mm3 (4.6-6.20); Red Cell Distribution Width 13.2 % (11.5-14.5); White Blood Count 9.1 K/mm3 (4.5-10.0)
[2024-03-17] MEDS: ENOXAPARIN 40 MG/0.4 ML SYRINGE SUB-Q (08:57)
[2024-03-17] MEDS: MUPIROCIN 2% OINT 22 GM TUBE 1 APPLIC EACH NARE (08:59)
[2024-03-17 09:17] LABS: Alanine Aminotransferase 17 U/L (6-50); Albumin Level 4.5 g/dL (3.5-5.1); Alkaline Phosphatase 68 U/L (38-126); Anion Gap 11 mmol/L (4-12); Aspartate Amino Transferase 23 U/L (17-59); Bilirubin,Total 0.6 mg/dL (0.2-1.3); Blood Urea Nitrogen 19 mg/dL (9-20); Calcium 9.8 mg/dL (8.4-10.2); Carbon Dioxide 21 mmol/L (22-30); Chloride 106 mmol/L (98-107); Estimated CRCL calculation 81 ml/min; Estimated Glomerular Filt Rate > 60; Glucose 158 mg/dL (65-110); Potassium 3.9 mmol/L (3.4-5.0); Sodium 138 mmol/L (137-145)
[2024-03-17] MEDS: AZITHROMYCIN 500 MG/NS 250 ML 500 MG/250 ML BAG 250 MG IVPB (09:25)
--- NOTE | 2024-03-17 09:28 | PM.PNPUL ---
Progress Note: A&P Assessment and Plan (1) COPD (chronic obstructive pulmonary disease): Code(s): J44.9 - Chronic obstructive pulmonary disease, unspecified Status: Acute Assessment and Plan: Patient with a 46 pack year tobacco use, mild apical predominant centrilobular emphysema on his chest CT scan. I have no PFTs. The patient may have COPD. 03/16/2024: Today the patient states that he feels better. Overall he states that his breathing is 80% back to his normal, his phlegm is 80% improved and he still has yellow phlegm. His cough is 80% improved. He says the DuoNebs to help him take deeper breaths. When I enter the room the patient was on 3 L nasal cannula saturations 97%. I decreased the patient to room air and after 23 minutes his saturations were 91%. Plan: Currently the patient has no wheezing. At this time I will continue DuoNebs q.6 hours. He does have some phlegm production and I will continue guaifenesin 1200 mg p.o. b.i.d.. I will check an alpha 1 anti trypsin genotype. Goal saturation 90-94%. Currently patient is on room air. I will check a room air arterial blood gas to exclude chronic hypercarbic respiratory Failure. I will check an overnight oximetry on room air to assess his oxygen levels when he sleeps. Of note the says that he has witnessed sleep apnea episodes. 03/17/24: Patient continues to slowly improve. Today tells me he is 80-85% back to his baseline. He denies fever, chills, rigors. He has a dry cough with no hemoptysis. When I enter the room he was on 2 L nasal cannula saturations 95%. I switched him to room air and after 10 minutes his saturations were 91%. Patient had an overnight oximetry started on room air and then increased to 1 L and then 2 L for persistent desaturations. In total recording duration was 7 hours and 28 minutes. His average saturation was 90%. Low saturation 79%, time with saturation less than or equal to 88% was 159 minutes with an oxygen desaturation of 6.4. Even on 2 L the patient had significant desaturations less than 88%. from a pulmonary perspective patient is ready to be discharged on these pulmonary medications: Levaquin 750 mg p.o. q.day x7 days Beta agonist and muscarinic antagonist that insurance will cover (Anoro Ellipta 62.5/25 at 1 puff Q day, stiolto respimat 2.5/2.5 at 1 puff BID, bevespi aerosphere 9 mcg/4.8 at 2 puffs BID, combivent respimat at 2 puffs Q 4 HR or separate albuterol and atrovent inhalers at 2 puffs Q 4 HR) Rescue albuterol 2 puffs q.4 hours p.r.n. shortness of breath or wheezing. Oxygen at rest and with activity per formal home O2 assessment which I have ordered Oxygen at night at 3 L nasal cannula Follow-up in the Pulmonary Clinic in 4 weeks, I gave him our business card and informed our coagulant dipper. Discussed with Holly Graff, will sign off, call with questions (2) Abnormal CT scan of lung: Code(s): R91.8 - Other nonspecific abnormal finding of lung field Status: Acute Assessment and Plan: Patient has no history of respiratory symptoms prior to 10 days ago. I have no old imaging. Patient has 46 pack year tobacco use quit 23 years ago. 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 The patient also states that in the he was exposed to asbestos. CT scan of the chest shows mild apical predominant centrilobular emphysema. Homogeneous septal thickening throughout with no peripheral or basilar predominance and with no honeycombing or bronchiectasis. There is ground glass infiltrates with some mosaic attenuation. In my opinion this is a CT pattern indeterminate for UIP. Etiology includes pneumonia (bacterial or viral), occupational lung disease from inhaled construction and brick dust, NSIP from autoimmune disease, hypersensitivity pneumonitis, doubt fluid overload, Plan: continue treat with
--- NOTE | 2024-03-17 11:21 | HOMEO2EVAL ---
Evaluation was performed at [facility] Home Oxygen Evaluation RC: Home Oxygen (O2) Evaluation Start: 03/17/24 08:35 Freq: ONCE Status: Active Protocol: RPE Activity Type Activity Date Activity User E-sign Co-sign Detail Recorded Client Recorded Date Recorded By Document 03/17/24 10:45 DJO [email or web address] 03/17/24 11:21 DJO Document 03/17/24 10:50 DJO [email or web address] 03/17/24 11:21 DJO Document 03/17/24 10:55 [email or web address] [email or web address] 03/17/24 11:21 DJO Document 03/17/24 11:00 [email or web address] [email or web address] 03/17/24 11:21 DJO Document 03/17/24 11:20 [email or web address] [email or web address] 03/17/24 11:21 DJO 03/17/24 03/17/24 03/17/24 10:45 10:50 10:55 Home O2 Evaluation [Oxygen] -Test Phase Resting Exercise Exercise -Oxygen Delivery Room Air Room Air Nasal Cannula -Oxygen Flow Rate (L/min) 1 [Pulse Oximetry] -Pulse Oximetry (90-100 %) 94 86 L 88 L [Pulse Rate] -Pulse Rate (60-100 beats/min) 87 108 H 107 H [Evaluation] -Activity Tolerance [Charges] -Evaluation Charges O2 Evaluation by Pulmonary 03/17/24 03/17/24 11:00 11:20 Home O2 Evaluation [Oxygen] -Test Phase Exercise Resting -Oxygen Delivery Nasal Cannula Room Air -Oxygen Flow Rate (L/min) 2 [Pulse Oximetry] -Pulse Oximetry (90-100 %) 90 93 [Pulse Rate] -Pulse Rate (60-100 beats/min) 110 H 88 [Evaluation] -Activity Tolerance Good [Charges] -Evaluation Charges
--- NOTE | 2024-03-17 11:34 | PCRCNOTE ---
HOME O2 EVAL COMPLETE, 2L WITH ACTIVITY AND 3L NOCTURNAL. SET UP WITH [facility] PHONE NUMBER [phone]. TANK TO BE DELIVERED TO PT'S ROOM TODAY BY [employer]
[2024-03-17 11:51] LABS: Glucose Point of Care 129 mg/dl (65-105)
--- NOTE | 2024-03-17 12:32 | PM.DS ---
DS: Admitting Diagnosis Discharge Date 03/17 Admitting Diagnosis sob DS: Discharge Diagnosis Discharge Diagnosis (1) Acute respiratory failure with hypoxia: Code(s): J96.01 - Acute respiratory failure with hypoxia Status: Acute Assessment and Plan: Admitted from ED with shortness of breath and SpO2 88% requiring oxygen supplementation of 3L NC on admission. Back to baseline room air. - Monitor Oxygen saturation, Oxygen via NC; wean oxygen as tolerated, keep SpO2 greater than 88% (2) Abnormal chest x-ray: Code(s): R93.89 - Abnormal findings on diagnostic imaging of other specified body structures Status: Acute Assessment and Plan: Patient presents to hospital with SOB for the past week. He has a 60 pack year smoking history, quit in 1999. Suspect COPD. - CXR: Hazy pulmonary disease as above. Correlate for pulmonary edema, infection, or possibly chronic interstitial disease. - Chest CT: Diffuse lung disease, likely a combination of mild emphysema, chronic interstitial lung disease, and atypical pneumonia versus pulmonary edema. Mild mediastinal lymphadenopathy, likely reactive. - Antibiotics: Ceftriaxone 1 gram IV q24H and Azithromycin 500mg IV q24H - Viral PCR: negative for Flu/COVID/RSV - Back on baseline RA. Monitor Oxygen saturation, Oxygen via NC; wean oxygen as tolerated, keep SpO2 greater than 88% - supportive treatment tyl prn mucinex BID nebs q6H - Monitor vital signs, I&Os, neuro status and patient is a fall risk - Follow WBC, serum electrolytes, temperature curves and cultures - Sputum culture collected on 03/16: pending - Legionella, pneumococcal, mycoplasma pending - MRSA pending - Autoimmune serologies - Pulmonology following, agree with continued CAP treatment (3) Type 2 diabetes mellitus: Code(s): E11.9 - Type 2 diabetes mellitus without complications Status: Acute Assessment and Plan: - hypoglycemia protocol - POC blood glucose ACHS - home medication - glimepiride, pioglitazone, metformin - correct regimen ordered - low dose TIDWM and continued home medications - A1C 09/06/23: 6.0 (4) Essential hypertension: Code(s): I10 - Essential (primary) hypertension Status: Acute Assessment and Plan: Chronic, stable on home medications. - Lisinopril 10 mg daily - Monitor (5) Mixed hyperlipidemia: Code(s): E78.2 - Mixed hyperlipidemia Status: Acute Assessment and Plan: Chronic, continue simvastatin 20 mg daily. Plan Final dx: COPD, Acute respiratory failure with hypoxia, pneumoni DS: Summary Hospital Course Hospital Course: 68-year-old male smoker (46 pack year) with hypertension, hyperlipidemia, type 2 diabetes mellitus, and suspected COPD who presented to the emergency department for evaluation of shortness of breath. He was getting duoneb. Had night sleep stify- will need 3 l per nc o2 at night. he is 80-85% back to his baseline on 03/17. He denies fever, chills, rigors. He has a dry cough with no hemoptysis. he ia to go home with: Levaquin 750 mg p.o. q.day x7 days Beta agonist and muscarinic antagonist that insurance will cover (Anoro Ellipta 62.5/25 at 1 puff Q day, stiolto respimat 2.5/2.5 at 1 puff BID, bevespi aerosphere 9 mcg/4.8 at 2 puffs BID, combivent respimat at 2 puffs Q 4 HR or separate albuterol and atrovent inhalers at 2 puffs Q 4 HR) Rescue albuterol 2 puffs q.4 hours p.r.n. shortness of breath or wheezing. Oxygen at rest and with activity per formal home O2 assessment which I have ordered Oxygen at night at 3 L nasal cannula Follow-up in the Pulmonary Clinic in 4 weeks, I gave him our business card and informed our automotive service management teacher. Time spent discussing smoking cessation with patient: 3 to 10 minutes Status at Discharge Functional status at discharge: independent ambulation Overall status at discharge: patient is back to baseline Time Spent with Patient Time attestation: Total time spe
[2024-03-17 13:08] LABS: ANA Cascade Screen NEGATIVE (NEGATIVE)
[2024-03-17 14:19] LABS: Aldolase 2.2 U/L (< OR = 8.1)
[2024-03-17 15:23] LABS: Anti Cyclic Citrullinated Pept <16 UNITS
[2024-03-19 15:14] LABS: ANCA Screen NEGATIVE (NEGATIVE)
[2024-03-19 17:59] LABS: Pneumococcal Antigen Urine NOT DETECTED
[2024-03-19 18:18] LABS: Adenovirus DNA Not Detected (Not Detected); Chlamydophila pneumoniae Not Detected (Not Detected); Coronavirus 229E Not Detected (Not Detected); Coronavirus HKU1 Not Detected (Not Detected); Coronavirus NL63 Not Detected (Not Detected); Coronavirus OC43 Not Detected (Not Detected); Human Metapneumovirus Not Detected (Not Detected); Human Parainfluenza Virus 1 Not Detected (Not Detected); Human Parainfluenza Virus 2 Not Detected (Not Detected); Human Parainfluenza Virus 3 Not Detected (Not Detected); Human Parainfluenza Virus 4 Not Detected (Not Detected); Human RSV B Not Detected (Not Detected); Influenza A Not Detected (Not Detected); Influenza B Not Detected (Not Detected); Mycoplasma pneumoniae Not Detected (Not Detected); Rhinovirus/Enterovirus Not Detected (Not Detected)
[2024-03-22 20:39] LABS: JO-1 AB <11 SI (<11); MI-2 Alpha Ab <11 SI (<11); MI-2 Beta Ab <11 SI (<11); NXP-2 AB <11 SI (<11); TIF1 Gamma Ab <11 SI (<11)
[2024-03-24 17:03] LABS: Mycoplasma IgM Antibody Titer 65 U/mL
[2024-03-29 15:54] LABS: Aspergillus fumigatus NEGATIVE (NEGATIVE)
== END 2024-03-17 14:05 | disposition home or self-care (01) | DRG 193 ==
LOC: ANHED 06:53 → ANH2MED 11:53
PROVIDERS: Emergency Medicine; Internal Medicine Pulmonary Disease; Physician Assistant; Student in an Organized Health Care Education/Training Program; Admitting Provider Internal Medicine; Emergency Provider Emergency Medicine; PCP Family Medicine; Visit Provider Nurse Practitioner
DX: J18.9 Pneumonia, unspecified organism (principal); J96.01 Acute respiratory failure with hypoxia; J44.0 Chronic obstructive pulmonary disease with (acute) lower respiratory infection; E78.2 Mixed hyperlipidemia; L40.8 Other psoriasis; E11.9 Type 2 diabetes mellitus without complications; M17.0 Bilateral primary osteoarthritis of knee; I10 Essential (primary) hypertension; R93.89 Abnormal findings on diagnostic imaging of other specified body structures; Z20.822 Contact with and (suspected) exposure to COVID-19; Z87.891 Personal history of nicotine dependence; Z77.090 Contact with and (suspected) exposure to asbestos
CPT/HCPCS: 36415; 36600; 71045; 71250; 80048; 80053; 82085; 82104; 82550; 82805; 82948; 83735; 83880; 84145; 84182; 85025; 85027; 86036; 86038; 86140; 86200; 86225; 86235; 86364; 86430; 86738; 87070; 87205; 87449; 87633; 87637; 87641; 87899; 93005; 93306; 94618; 94640; 94762; 96365; 96367; 99285; A9270; G0378; J0456; J0696; J1650; J1815

== ENCOUNTER 2024-03-25 02:30 | Emergency (ER) | payer MEDICARE, OTHER, SELFPAY ==
--- NOTE | ~2024-03-25 | XR_ITS ---
Clinical Indication: Shortness of breath PA and lateral views of the chest: Comparison: 03/15/2024 Findings: Bibasilar interstitial pattern of the lungs is present. No pleural effusion or pneumothorax .. Cardiomediastinal silhouette is within normal limits. Bones and soft tissues are unremarkable. Impression: Bibasilar predominant chronic interstitial disease, similar to prior exam. Reviewed, dictated and finalized at location . Impression: Bibasilar predominant chronic interstitial disease, similar to prior exam.
--- NOTE | 2024-03-25 02:32 | ECG_ITS ---
Test Date: 2024-03-25 02:38:43 Measurements Intervals [place] Rate: 65 P: 48 [place]: 213 QRS: -5 QRSD: 116 T: 31 QT: 368 QTc: 384 Interpretive Statements SINUS RHYTHM WITH FIRST DEGREE AV BLOCK Compared to ECG 03/15/2024 06:04:53 First degree AV block now present Electronically Signed On 03-25-2024 12:43:51 CDT by Sundar Eldridge M.D.
[2024-03-25 02:35] VITALS: BP 110/65; PULSE 69; RESP 22; TEMP 36.5; O2SAT 100
[2024-03-25 02:45] VITALS: O2SAT 95
[2024-03-25 02:53] LABS: Basophils Percent Auto 0.4 % (0.2-1.2); Eosinophils Absolute Auto 0.1 K/mm3 (0-0.3); Eosinophils Percent Auto 1.7 % (0-4.4); Hematocrit 39.8 % (42.0-52.0); Immature Granulocyte Absolute 0.05 K/mm3 (0.00-0.031); Immature Granulocyte Percent A 0.6 % (0-0.5); Lymphocytes Percent Auto 14.7 % (18.3-44.2); Mean Corpuscular HGB Conc 32.7 g/dl (32-36); Mean Corpuscular Volume 88.8 fl (80-100); Mean Platelet Volume 9.1 fl (7.4-10.4); Monocytes Absolute Auto 0.7 K/mm3 (0.1-0.6); Monocytes Percent Auto 8.7 % (2.6-8.5); Neutrophils Percent Auto 73.9 % (45.5-73.1); Platelet Count Result 385 k/mm3 (150-375); Red Blood Count 4.48 M/mm3 (4.6-6.20); Red Cell Distribution Width 13.1 % (11.5-14.5); White Blood Count 8.2 K/mm3 (4.5-10.0)
--- NOTE | 2024-03-25 02:55 | ED.GENADULT ---
HPI - General Adult General Chief complaint: Shortness of Breath/Dyspnea Stated complaint: breathing not getting any better Time Seen by Provider: 03/25/24 02:55 History of Present Illness HPI narrative: Patient is a 68-year-old male who presents to the emergency department this evening complaining of shortness of breath. Patient states that he was recently admitted to our facility and diagnosed with COPD. Patient was seen by 1 of our auditor appraiser, Dr. Dimas who started him on some inhalers and the patient was discharged on a 7 day course of Levaquin. Patient finished his antibiotics yesterday and states that he has been feeling much better every day after being discharged from the hospital but yesterday started to have some worsening shortness of breath. Patient states that because he felt short of breath he increased his oxygen level to 5 L. Patient was sent home with oxygen to use as needed during the day and 3 L at night. Patient is currently saturating 100% on the 5 L. Oxygen levels dropped to 2L and patient is maintaining his oxygenation at 98%. He denies any fevers or chills at home, any chest pain and is currently denying any additional symptoms or concerns. Related Data Allergies Allergy/AdvReac Type Severity Reaction Status Date / Time No Known Allergies Allergy Verified 12/09/23 13:08 Review of Systems Review of Systems: All systems are reviewed and are negative unless stated otherwise in the HPI. [facility] Past Medical History Medical History Chronic pain of left knee Tricompartmental osteoarthritis of the knee on 10/16/2023 most severe in the medial component. Chronic pain of right knee X-ray of the knee on 10/16/2023 reveals tricompartmental osteoarthritis severe in the medial component. Chronic sinusitis Controlled type 2 diabetes mellitus with hyperglycemia, without long-term current use of insulin fasting glucose 143 and hemoglobin A1c 6.7 on 08/22/2021. glucose 176 and hemoglobin A1c 7.2 on 01/30/2022.Fasting glucose 126 with hemoglobin A1c 6.4 With microalbumin ratio of 11 on 09/06/2022. Fasting glucose 108 with hemoglobin A1c 6.5 on 02/22/2023. Glucose 126 with hemoglobin A1c 6.0 and urine microalbumin ratio of 16 on 09/06/2023. Encounter for prostate cancer screening PSA 0.14 on 09/06/2023. Essential hypertension Kidney stone Mixed hyperlipidemia total cholesterol 143, triglycerides 271, HDL 37 and LDL 73 on 08/22/2021. Cholesterol 156, triglycerides 399, HDL 32, LDL 76 on 01/30/2022. cholesterol 156, triglycerides 235, HDL 37, LDL 86 on 09/06/2022. Total cholesterol 141, triglycerides 169, HDL 38 and LDL 76 on 02/22/2023. Total cholesterol 137, triglycerides 159, HDL 44, LDL 69 with ratio 3.1 on 09/06/2023. Nocturia PSA normal at 0.13 on 08/22/2021. PSA 0.12 on 09/06/2022. Other psoriasis Midline lower back /buttock Screening for diabetic retinopathy dilated eye exam 05/15/[address] Horne with no diabetic retinopathy or macular degeneration. No diabetic retinopathy on 05/02/2022. No retinopathy on 06/12/2023. Surgical History Surgical History History of colonoscopy with polypectomy Family History Family History Father Patient's father is , Onset Age: 94 Hypertension Mother Family history of chronic obstructive pulmonary disease, Onset Age: 70 Sibling Family history of dementia, Onset Age: 71 Sibling Cancer Social History Social History Social History: Surrogate medical decision maker: Terrie Callaway, spouse. Code status: Full code. Smoking packs per day: 2 Smoking cigarettes per day: 40.0 Years smoked: 30 Smoking pack-years: 60.00 Smoking status: Former smoker Alcohol intake: never Alcohol us
[2024-03-25 03:05] LABS: Alanine Aminotransferase 15 U/L (6-50); Albumin Level 4.4 g/dL (3.5-5.1); Alkaline Phosphatase 53 U/L (38-126); Anion Gap 9 mmol/L (4-12); Aspartate Amino Transferase 22 U/L (17-59); Bilirubin,Total 0.5 mg/dL (0.2-1.3); Blood Urea Nitrogen 31 mg/dL (9-20); Calcium 9.9 mg/dL (8.4-10.2); Carbon Dioxide 25 mmol/L (22-30); Chloride 105 mmol/L (98-107); Estimated CRCL calculation 62 ml/min; Estimated Glomerular Filt Rate 60; Glucose 67 mg/dL (65-110); Potassium 3.8 mmol/L (3.4-5.0); Sodium 139 mmol/L (137-145)
[2024-03-25 03:10] VITALS: BP 88/55; PULSE 66; RESP 17; O2SAT 98
--- NOTE | 2024-03-25 03:25 | PC.NURSE ---
1 L of normal saline bolus started on pt per Dr. Tc dimas.
[2024-03-25 04:13] VITALS: BP 106/55; PULSE 61; RESP 20; O2SAT 97
[2024-03-25 04:51] VITALS: PULSE 66; RESP 18
[2024-03-25] MEDS: IPRATROPIUM 0.5 MG/ALBUTEROL SULFATE 2.5 MG AMPUL.NEB 3 ML INHALATION (04:51)
[2024-03-25 05:04] VITALS: PULSE 71; RESP 17
[2024-03-25] MEDS: methylPREDNISolone SOD SUCC 125 MG VIAL IV PUSH (05:23)
== END 2024-03-25 05:44 | disposition home or self-care (01) ==
PROVIDERS: Emergency Provider Emergency Medicine; PCP Family Medicine
DX: J45.901 Unspecified asthma with (acute) exacerbation (principal); J44.89 Other specified chronic obstructive pulmonary disease; I10 Essential (primary) hypertension; E11.9 Type 2 diabetes mellitus without complications; E78.2 Mixed hyperlipidemia; J32.9 Chronic sinusitis, unspecified; L40.8 Other psoriasis; M17.0 Bilateral primary osteoarthritis of knee; Z87.442 Personal history of urinary calculi; Z86.010 Personal history of colon polyps; Z87.891 Personal history of nicotine dependence
CPT/HCPCS: 36415; 71046; 80053; 83605; 85025; 87040; 93005; 94640; 96374; 99284; J2919; J7030

== ENCOUNTER 2024-04-13 14:02 | Outpatient (CLI) | payer OTHER, MEDICARE, SELFPAY ==
--- NOTE | 2024-04-14 09:06 | WPDPFTINT ---
PFT Procedure Performed PFT Procedure Performed Spirometry with Pre/Post Bronchodilator Plethysmography (Lung Vol) Diffusing Cap (DLCO) Flow Vol Loop PFT Interpretation This is a pulmonary function test with pre and post-bronchodilator spirometry, plethysmography and diffusing capacity. The test was performed and results interpreted in accordance with the 2019 and 2005 ATS/ERS Task Force guidelines respectively using the Global Lung Function Initiative-2012 reference equations. Patient demonstrated good effort and cooperation. Reproducibility criteria were met. The quality of the pre bronchodilator spirometry maneuver was Grade A and post bronchodilator spirometry maneuver was Grade A. Findings: Spirometry: The contour the inspiratory and expiratory flow tracing are normal. The pre bronchodilator FVC is 2.72 L, 63% predicted. The pre bronchodilator FEV1 is 2.14 L, 66% predicted. The pre bronchodilator FEV1: FVC ratio 79%. The post bronchodilator FVC is 2.70 L, representing 1% decrease. The post bronchodilator FEV1 is 2.08 L, representing a 3% decrease. The post bronchodilator FEV1: FVC ratio 77%. Plethysmography: The total lung capacity is 3.97 L, 56% predicted. The functional residual capacity is 1.99 L, 53% predicted. The residual volume is 1.06 L, 43% predicted. Diffusing capacity: The diffusing capacity unadjusted for hemoglobin and carboxyhemoglobin is 10.7, 44% predicted. Diffusing capacity adjusted for alveolar volume is 2.86, 77% predicted. Impression: There is a moderate restrictive ventilatory abnormality. The spirometry is normal without evidence of an obstructive abnormality. There is no significant improvement after inhaling a single dose of albuterol. The diffusing capacity unadjusted for hemoglobin and carboxyhemoglobin is moderately decreased and normalizes when adjusted for alveolar volume. There are no prior studies for comparison
== END 2024-04-13 14:03 | disposition home or self-care (01) ==
LOC: ANHPFT 14:02
PROVIDERS: PCP Family Medicine; Visit Provider Internal Medicine Pulmonary Disease
DX: J44.9 Chronic obstructive pulmonary disease, unspecified (principal); R91.8 Other nonspecific abnormal finding of lung field; J18.9 Pneumonia, unspecified organism; R94.2 Abnormal results of pulmonary function studies
CPT/HCPCS: 94060; 94726; 94729

== ENCOUNTER 2024-04-26 10:00 | Outpatient (CLI) | payer MEDICARE, OTHER, SELFPAY ==
--- NOTE | ~2024-04-26 | CT_ITS ---
CT Scan of the Chest without Contrast: Clinical Indication: COPD Technique: Contiguous sections were acquired throughout the chest without intravenous contrast. Dose reduction technique was used on this scan by utilizing automated exposure control and iterative recon struction technique. The dose-length product (DLP) was 378.68 mGy-cm. COMPARISON: 03/15/2024 Findings: Stable mildly prominent mediastinal lymph nodes are present. Coronary artery calcium cages are presen t. Ascending aorta measures up to 4.2 cm in diameter. There is no evidence of pleural or pericardial effusion. There is extensive chronic interstitial disease, diffuse subpleural reticulation, extensive interstit ial thickening, relatively peripheral distribution. Possible mild underlying emphysema. Images through the upper abdomen reveal possible partially imaged mild left hydronephrosis versus par apelvic cysts. 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 Impression: Extensive chronic interstitial pulmonary disease is similar to prior exam. Possible mild underlying e mphysema. Ascending aorta measures 4.2 cm in diameter. Possible partially imaged mild left hydronephrosis, versus parapelvic cysts stable from prior exam. Reviewed, dictated and finalized at location . Impression: Extensive chronic interstitial pulmonary disease is similar to prior exam. Poss ible mild underlying emphysema. Ascending aorta measures 4.2 cm in diameter. Possible partially imaged mild left hydronephrosis, versus parapelvic cysts sta ble from prior exam.
== END 2024-04-26 10:01 ==
LOC: GOSHIMG 10:01
PROVIDERS: PCP Family Medicine; Visit Provider Internal Medicine Pulmonary Disease
DX: J44.9 Chronic obstructive pulmonary disease, unspecified (principal); J18.9 Pneumonia, unspecified organism; R91.8 Other nonspecific abnormal finding of lung field
CPT/HCPCS: 71250

== ENCOUNTER 2024-06-04 08:39 | Outpatient (CLI) | payer MEDICARE, OTHER, SELFPAY ==
--- NOTE | 2024-06-14 12:41 | WPDSLEEPSTUD ---
Sleep Study Date of Study: 06/04/24 Ordering Provider: Jam Dimas MD Interpreting Physician: Adriana Constantino MD Sleep Study Type: Split Polysomnogram Height: 1.78 m Weight: 99.79 kg Body Mass Index: 31.5 Neck Circumference (inches): 16.25 [place]: 3 Reason for Sleep Study Loud snoring, poor sleep, low oxygen levels at night * 04/19/2024: Overnight oximetry on 3 L nasal cannula showed duration 5 hours and 49 minutes, basal saturation 91.2%. High saturation 98%. Low saturation 72%. Time with saturation less than or equal to 88% was 1 hour and 31 minutes. Oxygen desaturation index 44. Dr. Dimas sent this patient for split night study and had him increase his baseline O2 to 4 L nasal cannula at night while he is awaiting his split night sleep study. Sleep History Rick Callaway is a 68-year-old man with low oxygen levels at night, was on 4 L/min with sleep awaiting this study. He has COPD and interstitial lung disease. He occasionally awakens from sleep feeling short of breath. He rarely wakes at night with heartburn, belching or coughing.??He constantly snores loudly enough that others complain. He frequently has trouble sleeping when he has a cold. He rarely wakes up gasping for breath during the night. He frequently has breathing problems at night observed by others. He never sweats excessively at night. He never notices his heart pounding or beating irregularly during the night. He never falls asleep during the day. He never falls asleep involuntarily, never falls asleep while driving. He never experiences loss of muscle tone with strong emotion. He never has daytime difficulty at work due to excessive sleepiness. He never feels paralyzed on waking or falling asleep. He never experiences vivid dreams upon waking or falling asleep. He never feels afraid of going to sleep. He rarely has nightmares. He occasionally recalls his dreams. He occasionally has thoughts racing through his mind. He never feels sad or depressed. He never feels anxiety. He never notices parts of his body jerk. He never kicks during the night. He never feels crawling or aching feelings in his legs. He rarely feels leg pain at night. He never has morning jaw pain, rarely grinds his teeth at night. He frequently feels bothered by pain during the day, although he is never awakened by pain during the night. He frequently wakes up feeling stiff in the morning, and he frequently wakes feeling sore or achy. He rarely awakens with pain in his neck, spine, or joints. 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 Normal bedtime is 10:00 p.m., falling asleep within 30 minutes, waking 1 or 2 times during the night to urinate, returns to sleep within a half hour. Wake time is 4:00 a.m. He typically gets 6 hours of interrupted sleep per night. he keeps the same schedule on weekends. He sometimes takes naps in the day, and may feel refreshed after a short 10-15 minute nap. Habits:??Tobacco:former smoker, quit 20 years ago Caffeine:4 servings daily. Alcohol: none Recreational substances: none PMFSH Past Medical History Medical History Abnormal chest x-ray Abnormal CT scan of lung Acute respiratory failure with hypoxia Chronic pain of left knee Tricompartmental osteoarthritis of the knee on 10/16/2023 most severe in the medial component. Chronic pain of right knee X-ray of the knee on 10/16/2023 reveals tricompartmental osteoarthritis severe in the medial component. Chronic sinusitis Controlled type 2 diabetes mellitus with hyperglycemia, without long-term current use of insulin fasting glucose 143 and hemoglobin A1c 6.7 on 08/22/2021. glucose 176 and hemoglobin A1c 7.2 on 01/30/2022.Fasting glucose 126 with hemoglobin A1c 6.4 With microalbumin ratio of 11 on 09/06/2022. Fasting glucose 108 with hemoglobin A1c 6.5 on 02/22/2023. Glucose 126 with hemoglobin A1c 6.0 and urine microalbumin ratio of 16 on 09/06/2023. Glucose 140
[2024-06-15 21:07] VITALS: BMI 31.5
== END 2024-06-05 06:31 | disposition home or self-care (01) ==
LOC: ANHCSM 08:40
PROVIDERS: PCP Family Medicine; Visit Provider Internal Medicine Pulmonary Disease
DX: G47.33 Obstructive sleep apnea (adult) (pediatric) (principal); J44.9 Chronic obstructive pulmonary disease, unspecified
CPT/HCPCS: 95811